=== PATIENT | female | born 1985 | race African-American/Black ===

== ENCOUNTER → 2022-11-14 | Outpatient (CLI) | LOC: M SOG 07:59 | PROVIDERS: ATTEND Physician Assistant | DX: M79.642 Pain in left hand (principal) ==

== ENCOUNTER 2024-06-28 06:04 | Day surgery (SDC) | payer OTHER ==
[~2024-06-28] VITALS: Ht 160 cm; Wt 61.7 kg
[~2024-06-28 06:04] MED LIST: BUSP15TA47 PO; FLUO40CA PO
[2024-06-28] MEDS: LIDOCAINE W/EPINEPHRINE 1% 20ML VIAL XX ONE (07:30)
[2024-06-28] MEDS: SODIUM BICARBONATE 8.4% INJ 50MEQ 50ML VIAL XX ONE (07:30)
[2024-06-28] MEDS: BACITRACIN OINTMENT 30GM TUBE As Ordered ONE (08:15)
[2024-06-28 08:26] VITALS: BP 128/77; TEMP 97.1; O2SAT 100
== END 2024-06-28 08:42 | disposition home or self-care (01) ==
LOC: M SDC 06:04
PROVIDERS: ATTEND Orthopaedic Surgery Hand Surgery
DX: M65.4 Radial styloid tenosynovitis [de Quervain] (principal)
CPT/HCPCS: 25000; J0665

== ENCOUNTER 2024-08-11 09:04 | Day surgery (SDC) | payer OTHER ==
[~2024-08-11] VITALS: Ht 160 cm; Wt 62.0 kg
[2024-08-11] MEDS ORDERED: ONDANSETRON 4MG 2ML VIAL As Ordered ONE (09:28)
[2024-08-11] MEDS ORDERED: propofoL 200 MG/20 ML VIAL As Ordered ONE (09:28)
[2024-08-11] MEDS ORDERED: LIDOCAINE 2% 100MG/5ML SDV (FOR ANES.) As Ordered ONE (09:28)
[2024-08-11] MEDS ORDERED: dexmedeTOMIDine (4MCG/ML)200MCG/50ML BTL (PRECEDEX) As Ordered ONE (09:29)
[2024-08-11] MEDS: LR 500 ML IV SCH (09:53)
[2024-08-11] MEDS ORDERED: MIDAZOLAM INJ 2MG/2ML VIAL As Ordered ONE (10:06)
[2024-08-11] MEDS ORDERED: fentaNYL 100 MCG/2 ML INJECTION As Ordered ONE (10:06)
[2024-08-11] MEDS: ceFAZolin SOD 2 GM in IV 1 EA IV ONE (10:45)
[2024-08-11] MEDS ORDERED: ACETAMINOPHEN 1000MG 100ML IV BAG As Ordered ONE (10:47)
[2024-08-11] MEDS ORDERED: KETAMINE HCL 200MG/20ML VIAL As Ordered ONE (11:09)
[2024-08-11] MEDS ORDERED: ePHEDrine SULFATE 25 MG/5 ML(5MG/ML) SYRINGE As Ordered ONE (11:23)
[2024-08-11] MEDS: BACITRACIN OINTMENT 30GM TUBE As Ordered ONE (11:39)
[2024-08-11] MEDS ORDERED: ONDANSETRON 4MG 2ML VIAL IV PRN (12:00)
[2024-08-11] MEDS ORDERED: fentaNYL 100 MCG/2 ML INJECTION IV PRN (12:00)
[2024-08-11] MEDS ORDERED: oxyCODONE 5MG TAB PO PRN (12:00)
[2024-08-11] MEDS ORDERED: PERCOCET PO (12:01)
[2024-08-11 12:32] VITALS: BP 114/73; TEMP 97.3; O2SAT 97
== END 2024-08-11 13:15 | disposition home or self-care (01) ==
LOC: M SDC 09:04
PROVIDERS: ATTEND Orthopaedic Surgery Hand Surgery
DX: T81.31XA Disruption of external operation (surgical) wound, not elsewhere classified, initial encounter (principal); Y79.8 Miscellaneous orthopedic devices associated with adverse incidents, not elsewhere classified; Z91.048 Other nonmedicinal substance allergy status; Z79.899 Other long term (current) drug therapy
CPT/HCPCS: 12041; 81025; J0131; J0665; J0690; J1100; J2250; J2405; J3010